=== PATIENT | female | born 1990 | race Two or more races ===

== ENCOUNTER 2021-03-13 12:02 | Emergency (ER) | payer OTHER ==
[~2021-03-13] VITALS: Ht 162.6 cm; Wt 124.7 kg
[2021-03-13 12:16] VITALS: BP 140/64
== END 2021-03-13 18:21 | disposition left against medical advice (07) ==
LOC: ER 12:02
DX: M54.50 Low back pain, unspecified (principal); Z53.21 Procedure and treatment not carried out due to patient leaving prior to being seen by health care provider